=== PATIENT | female | born 1945 | race American Indian/Alaskan Native ===

== ENCOUNTER 2021-07-15 18:03 | Emergency (ER) | payer MEDICARE ==
--- NOTE | 2021-07-15 20:50 | Event Note ---
Date: 07/16/21 The patient was evaluated in the emergency department for symptoms described in the history of present illness. He/she was evaluated in the context of the global COVID-19 pandemic, which necessitated consideration that the patient might be at risk for infection with the virus that causes COVID-19. Institutional protocols and algorithms that pertain to the evaluation of patients at risk for COVID-19 are in a state of rapid change based on information released by regulatory bodies including the CDC and federal and state organizations. These policies and algorithms were followed during the patient's care in the emergency department. Please note that these policies, procedures and recommendations changed on a rapid basis. Medical screening examination: 75-year-old female, resides in a half-way, sent to the emergency room for evaluation after fall. EMS tells me that the patient has chronic respiratory failure, and is chronically on home oxygen. The patient is awake, follows commands, moves 4 extremities, but is confused and demented at baseline as per EMS. CT scan brain, cervical spine, x-ray chest, pelvis, appropriate laboratory studies ordered. Vital Signs 07/15/21 23:45 Temperature 98.9 F Pulse Rate 81 Respiratory 22 Rate Blood Pressure 144/78 [Left] O2 Sat by Pulse 100 Oximetry Lab Results 07/15/21 07/15/21 07/15/21 Range/Units 21:08 21:08 21:08 WBC 11.4 H (4.5-11.0) K/mm3 RBC 3.90 (3.65-5.03) M/mm3 Hgb 10.5 (10.1-14.3) gm/dl Hct 32.9 (30.3-42.9) % MCV 84 (79-97) fl MCH 27 L (28-32) pg MCHC 32 (30-34) % RDW 19.0 H (13.2-15.2) % Plt Count 344 (140-440) K/mm3 Lymph % (Auto) 8.7 L (13.4-35.0) % [place] % (Auto) 6.5 (0.0-7.3) % Eos % (Auto) 2.4 (0.0-4.3) % Baso % (Auto) 0.3 (0.0-1.8) % Lymph # (Auto) 1.0 L (1.2-5.4) K/mm3 [place] # (Auto) 0.7 (0.0-0.8) K/mm3 Eos # (Auto) 0.3 (0.0-0.4) K/mm3 Baso # (Auto) 0.0 (0.0-0.1) K/mm3 Seg Neutrophils % 82.1 H (40.0-70.0) % Seg Neutrophils # 9.4 H (1.8-7.7) K/mm3 Sodium 135 L (137-145) mmol/L Potassium 4.3 (3.6-5.0) mmol/L Chloride 101.6 (98-107) mmol/L Carbon Dioxide 23 (22-30) mmol/L Anion Gap 15 mmol/L BUN 14 (7-17) mg/dL Creatinine 0.3 L (0.6-1.2) mg/dL Estimated GFR > 60 ml/min BUN/Creatinine Ratio 47 % Glucose 93 (65-100) mg/dL Lactic Acid 1.30 (0.7-2.0) mmol/L Calcium 9.6 (8.4-10.2) mg/dL Magnesium 2.20 (1.7-2.3) mg/dL Total Bilirubin 0.90 (0.1-1.2) mg/dL AST 302 H (5-40) units/L ALT 36 (7-56) units/L Alkaline Phosphatase 460 H (35-129) units/L Total Creatine Kinase 19 L (30-135) units/L Troponin T < 0.010 (0.00-0.029) ng/mL Total Protein 7.6 (6.3-8.2) g/dL Albumin 3.1 L (3.9-5) g/dL Albumin/Globulin Ratio 0.7 % CT head/brain wo con INDICATION / CLINICAL INFORMATION: 75 years Female; Fall, closed head injury, alteration in mental sta. TECHNIQUE: Routine CT head without contrast. All CT scans at this location are performed using CT dose reduction for ALARA by means of automated exposure control. COMPARISON: None. FINDINGS: BRAIN / INTRACRANIAL CONTENTS: There is extensive right frontotemporal scalp hematoma. The motion and positioning degrade the image quality. However, there is no clear CT evidence of acute intracranial hemorrhage or significant mass effect. There appears be mild to moderate cerebral white matter disease most consistent with microvascular angiopathy. Findings include the internal capsules at. This mild cerebral atrophy. The ventricular system is correspondingly appropriate in size and configuration. ORBITS: No significant abnormality of visualized orbits. SINUSES / MASTOIDS: No significant abnormality in the visualized paranasal sinuses or mastoid air cells. CRANIOCERVICAL JUNCTION: No significant abnormality. ADDITIONAL FINDINGS: None. IMPRESSION: 1. There is extensive right frontotemporal scalp hematoma. However, there is no cl ear CT evidence of acute intracranial hemorrhage. 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 Signer Name: Salvatore Kilgore MD Signed: 07/15/2021 9:01 PM Workstation Name: [id number] CT cervical spine wo con INDICATION / CLINICAL INFORMATION: 75 years Female; Fall, closed head injury, alteration in mental sta. TECHNIQUE: Axial CT images of the cervical spine were obtained. Sagittal and coronal reformatted images were produced. All CT scans at this location are performed using CT dose reduction for ALARA by means of automated exposure control. COMPARISON: None available. FINDINGS: POST-SURGICAL CHANGES: None. ALIGNMENT: There is mild curvature the cervical spine, convex toward the left at. There is no significant spondylolisthesis at. VERTEBRAE: The motion and positioning degrade the image quality at. However, there is no gross CT evidence of acute fracture involving the cervical spine. There is moderate disc space narrowing with mild endplate changes from C3-4 to C6-7 at. Appears be incidental enostosis within the left at pedicle of T4. INTRAVERTEBRAL DISCS: There is mild right foraminal narrowing at C2-3 at. There is marked right foraminal narrowing at C3-4. Mild narrowing is seen on the left. There is marked right and moderate to marked left foraminal narrowing at C4-5. There is also marked right foraminal narrowing at C5-6 at. The spondylosis at C6-7 appears to efface the ventral subarachnoid space. There is marked right and milder left foraminal narrowing. PARASPINAL SOFT TISSUES: No prevertebral soft tissue fluid collections are identified. There is heterogeneous appearance of the visualized of thyroid gland with areas of decreased attenuation which extended posteriorly on the right. The findings are nonspecific. ADDITIONAL FINDINGS: None. IMPRESSION: 1. There is no clear CT evidence of acute fracture involving the cervical spine. 2. There are multilevel degenerative the changes as detailed above. Signer Name: Salvatore Kilgore MD Signed: 07/15/2021 9:08 PM CHEST 1 VIEW INDICATION / CLINICAL INFORMATION: Fall, weakness, suspect sepsis. COMPARISON: None available. FINDINGS: SUPPORT DEVICES: None. HEART / MEDIAS TINUM: No significant abnormality. LUNGS / PLEURA: There is significant interstitial pulmonary opacities throughout both lungs. No large areas consolidation or pleural effusion noted. Unfortunately, there are no prior chest radiographs for comparison. No pleural effusion. No pneumothorax. ADDITIONAL FINDINGS: Prominent degenerative changes noted within the left shoulder. IMPRESSION: 1. Prominent bilateral interstitial pulmonary opacities. Although I do not have prior films to confirm chronicity or acuteness, I am concerned the patient may have bilateral multifocal pneumonia. Correlation with Covid status is recommended. Signer Name: Fátima Avalos MD Signed: 07/15/2021 9:08 PM Workstation Name: [id number] AP PELVIS, SINGLE VIEW INDICATION / CLINICAL INFORMATION: Fall hip pain. CO MPARISON: None available. FINDINGS: Single view the pelvis does not demonstrate visible fracture. Both hips are grossly intact and without dislocation. IMPRESSION: No obvious fracture or dislocation of the pelvis. Signer Name: Fátima Avalos MD Signed: 07/15/2021 9:06 PM Workstation Name: [id number]
[2021-07-15 21:44] LABS: Basophils % (Auto) 0.3 % (0.0-1.8); Eosinophils # (Auto) 0.3 K/mm3 (0.0-0.4); Eosinophils % (Auto) 2.4 % (0.0-4.3); Hematocrit 32.9 % (30.3-42.9); Hemoglobin 10.5 gm/dl (10.1-14.3); Lymphocytes % (Auto) 8.7 % (13.4-35.0); Mean Corpuscular HGB Conc 32 % (30-34); Mean Corpuscular Volume 84 fl (79-97); Monocytes # (Auto) 0.7 K/mm3 (0.0-0.8); Monocytes % (Auto) 6.5 % (0.0-7.3); Platelet Count 344 K/mm3 (140-440)
[2021-07-15 21:56] LABS: Alanine Aminotransferase 36 units/L (7-56); Albumin 3.1 g/dL (3.9-5); Blood Urea Nitrogen 14 mg/dL (7-17); Calcium 9.6 mg/dL (8.4-10.2); Hemolysis Index 3
[2021-07-15 22:01] LABS: BUN/Creatinine Ratio 47
--- NOTE | 2021-07-15 22:05 | Cat Scan Report ---
CT head/brain wo con INDICATION / CLINICAL INFORMATION: 75 years Female; Fall, closed head injury, alteration in mental sta. TECHNIQUE: Routine CT head without contrast. All CT scans at this location are performed using CT dos e reduction for ALARA by means of automated exposure control. COMPARISON: None. FINDINGS: BRAIN / INTRACRANIAL CONTENTS: There is extensive right frontotemporal scalp hematoma. The motion and positioning degrade the image quality. However, there is no clear CT evidence of acute intracranial hemorrhage or significant mass effect. There appears be mild to moderate cerebral white matter disease most consistent with microvascular an giopathy. Findings include the internal capsules at. This mild cerebral atrophy. The ventricular syst em is correspondingly appropriate in size and configuration. ORBITS: No significant abnormality of visualized orbits. SINUSES / MASTOIDS: No significant abnormality in the visualized paranasal sinuses or mastoid air booker ls. CRANIOCERVICAL JUNCTION: No significant abnormality. ADDITIONAL FINDINGS: None. IMPRESSION: 1. There is extensive right frontotemporal scalp hematoma. However, there is no clear CT evidence of acute intracranial hemorrhage. 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 Signer Name: Salvatore Kilgore MD Signed: 07/15/2021 10:01 PM Workstation Name: [id number]
--- NOTE | 2021-07-15 22:11 | XRay Report ---
AP PELVIS, SINGLE VIEW INDICATION / CLINICAL INFORMATION: Fall hip pain. COMPARISON: None available. FINDINGS: Single view the pelvis does not demonstrate visible fracture. Both hips are grossly intact and withou t dislocation. IMPRESSION: No obvious fracture or dislocation of the pelvis. Signer Name: Fátima Avalos MD Signed: 07/15/2021 10:06 PM Workstation Name: [id number]
--- NOTE | 2021-07-15 22:13 | XRay Report ---
CHEST 1 VIEW INDICATION / CLINICAL INFORMATION: Fall, weakness, suspect sepsis. COMPARISON: None available. FINDINGS: SUPPORT DEVICES: None. HEART / MEDIASTINUM: No significant abnormality. LUNGS / PLEURA: There is significant interstitial pulmonary opacities throughout both lungs. No large areas consolidation or pleural effusion noted. Unfortunately, there are no prior chest radiographs f or comparison. No pleural effusion. No pneumothorax. ADDITIONAL FINDINGS: Prominent degenerative changes noted within the left shoulder. IMPRESSION: 1. Prominent bilateral interstitial pulmonary opacities. Although I do not have prior films to confir m chronicity or acuteness, I am concerned the patient may have bilateral multifocal pneumonia. Correl ation with Covid status is recommended. Signer Name: Fátima Avalos MD Signed: 07/15/2021 10:08 PM Workstation Name: [id number]
--- NOTE | 2021-07-15 22:13 | Cat Scan Report ---
CT cervical spine wo con INDICATION / CLINICAL INFORMATION: 75 years Female; Fall, closed head injury, alteration in mental sta. TECHNIQUE: Axial CT images of the cervical spine were obtained. Sagittal and coronal reformatted images were pr oduced. All CT scans at this location are performed using CT dose reduction for ALARA by means of aut omated exposure control. COMPARISON: None available. FINDINGS: POST-SURGICAL CHANGES: None. ALIGNMENT: There is mild curvature the cervical spine, convex toward the left at. There is no signifi cant spondylolisthesis at. VERTEBRAE: The motion and positioning degrade the image quality at. However, there is no gross CT janny dence of acute fracture involving the cervical spine. There is moderate disc space narrowing with mil d endplate changes from C3-4 to C6-7 at. Appears be incidental enostosis within the left at pedicle o f T4. INTRAVERTEBRAL DISCS: There is mild right foraminal narrowing at C2-3 at. There is marked right lan inal narrowing at C3-4. Mild narrowing is seen on the left. There is marked right and moderate to marked left foraminal narrowing at C4-5. There is also marked r ight foraminal narrowing at C5-6 at. The spondylosis at C6-7 appears to efface the ventral subarachnoid space. There is marked right and m ilder left foraminal narrowing. PARASPINAL SOFT TISSUES: No prevertebral soft tissue fluid collections are identified. There is heter ogeneous appearance of the visualized of thyroid gland with areas of decreased attenuation which exte nded posteriorly on the right. The findings are nonspecific. ADDITIONAL FINDINGS: None. IMPRESSION: 1. There is no clear CT evidence of acute fracture involving the cervical spine. 2. There are multilevel degenerative the changes as detailed above. Signer Name: Salvatore Kilgore MD Signed: 07/15/2021 10:08 PM Workstation Name: [id number]
--- NOTE | 2021-07-16 00:07 | Emergency Department Report ---
ED Fall HPI - General Chief Complaint: Fall Stated Complaint: FALL Time Seen by Provider: 07/15/21 23:44 Source: EMS Mode of arrival: Stretcher - History of Present Illness Initial Comments: Patient is a 75-year-old F Citizen Of [place] female with a past medical history of Parkinson's Parkinson's dementia pulmonary embolus as a complication COVID-19 who is presenting status post fall. Patient had a several day stay in the hospital admitted last month for hypoxia. Patient had a pulmonary embolus at that time. She was weaned down to room air was doing much improved proved at the time of discharge. Patient was positioned repositioning herself in bed today and suffered a fall with a head injury. Patient is not a good historian at this time and states that she hurts but is unable to give a location of her pain. There is a large hematoma on her forehead. ED Review of Systems ROS: Stated complaint: FALL Other details as noted in HPI Comment: All other systems reviewed and negative ED Past Medical Hx - Past Medical History Previous Medical History?: Yes Hx Hypertension: Yes Additional medical history: hypothyroidism, dementia - Surgical History Past Surgical History?: No ED Physical Exam - General Limitations: Altered Mental Status, Physical Limitation General appearance: alert, in no apparent distress - Head Head exam: Present: atraumatic, normocephalic, other (Right-sided forehead hematoma versus lipoma) - Eye Eye exam: Present: normal appearance, PERRL, EOMI - ENT ENT exam: Present: mucous membranes moist - Neck Neck exam: Present: normal inspection - Respiratory Respiratory exam: Present: normal lung sounds bilaterally. Absent: respiratory distress, wheezes, rales, rhonchi - Cardiovascular Cardiovascular Exam: Present: regular rate, normal rhythm, normal heart sounds. Absent: systolic murmur, diastolic murmur, rubs, gallop - GI/Abdominal GI/Abdominal exam: Present: soft, normal bowel sounds. Absent: distended, tenderness, guarding, rebound - Extremities Exam Extremities exam: Present: normal inspection - Back Exam Back exam: Present: normal inspection - Neurological Exam Neurological exam: Present: alert, altered - Psychiatric Psychiatric exam: Present: normal affect, normal mood - Skin Skin exam: Present: warm, dry, intact, normal color. Absent: rash ED Course Vital Signs 07/15/21 23:45 Temperature 98.9 F Pulse Rate 81 Respiratory 22 Rate Blood Pressure 144/78 [Left] O2 Sat by Pulse 100 Oximetry ED Medical Decision Making - Lab Data Result diagrams: 07/15/21 21:08 07/15/21 21:08 - Radiology Data CT head/brain wo con INDICATION / CLINICAL INFORMATION: 75 years Female; Fall, closed head injury, alteration in mental sta. TECHNIQUE: Routine CT head without contrast. All CT scans at this location are performed using CT dose reduction for ALARA by means of automated exposure control. COMPARISON: None. FINDINGS: BRAIN / INTRACRANIAL CONTENTS: There is extensive right frontotemporal scalp hematoma. The motion and positioning degrade the image quality. However, there is no clear CT evidence of acute intracranial hemorrhage or significant mass effect. There appears be mild to moderate cerebral white matter disease most consistent with microvascular angiopathy. Findings include the internal capsules at. This mild cerebral atrophy. The ventricular system is correspondingly appropriate in size and configuration. ORBITS: No significant abnormality of visualized orbits. SINUSES / MASTOIDS: No significant abnormality in the visualized paranasal sinuses or mastoid air cells. CRANIOCERVICAL JUNCTION: No significant abnormality. ADDITIONAL FINDINGS: None. IMPRESSION: 1. There is extensive right frontotemporal scalp hematoma. However, there is no clear CT evidence of acute intracranial hemorrhage. 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 Signer Name: Salvatore Kilgore MD Signed: 07/15/2021 9:01 PM Workstation Name: [id number] CT cervical spine wo con INDICATION / CLINICAL INFORMATION: 75 years Female; Fall, closed head injury, alteration in mental sta. TECHNIQUE: Axial CT images of the cervical spine were obtained. Sagittal and coronal reformatted images were produced. All CT scans at this location are performed using CT dose reduction for ALARA by means of automated exposure control. COMPARISON: None available. FINDINGS: POST-SURGICAL CHANGES: None. ALIGNMENT: There is mild curvature the cervical spine, convex toward the left at. There is no significant spondylolisthesis at. VERTEBRAE: The motion and positioning degrade the image quality at. However, there is no gross CT evidence of acute fracture involving the cervical spine. There is moderate disc space narrowing with mild endplate changes from C3-4 to C6-7 at. Appears be incidental enostosis within the left at pedicle of T4. INTRAVERTEBRAL DISCS: There is mild right foraminal narrowing at C2-3 at. There is marked right foraminal narrowing at C3-4. Mild narrowing is seen on the left. There is marked right and moderate to marked left foraminal narrowing at C4-5. There is also marked right foraminal narrowing at C5-6 at. The spondylosis at C6-7 appears to efface the ventral subarachnoid space. There is marked right and milder left foraminal narrowing. PARASPINAL SOFT TISSUES: No prevertebral soft tissue fluid collections are identified. There is heterogeneous appearance of the visualized of thyroid gland with areas of decreased attenuation which extended posteriorly on the right. The findings are nonspecific. ADDITIONAL FINDINGS: None. IMPRESSION: 1. There is no clear CT evidence of acute fracture involving the cervical spine. 2. There are multilevel degenerative the changes as detailed above. Signer Name: Salvatore Kilgore MD CHEST 1 VIEW INDICATION / CLINICAL INFORMATION: Fall, weakness, suspect sepsis. COMPARISON: None available. FINDINGS: SUPPORT DEVICES: None. HEART / MEDIASTINUM: No significant abnormality. LUNGS / PLEURA: There is significant interstitial pulmonary opacities throughout both lungs. No large areas consolidation or pleural effusion noted. Unfortunately, there are no prior chest radiographs for comparison. No pleural effusion. No pneumothorax. ADDITIONAL FINDINGS: Prominent degenerative changes noted within the left shoulder. IMPRESSION: 1. Prominent bilateral interstitial pulmonary opacities. Although I do not have prior films to confirm chronicity or acuteness, I am concerned the patient may have bilateral multifocal pneumonia. Correlation with Covid status is recommended. Signer Name: Fátima Avalos MD Signed: 07/15/2021 9:08 PM Workstation Name: [id number] [email or web address] [email or web address], SINGLE VIEW INDICATION / CLINICAL INFORMATION: Fall hip pain. COMPARISON: None available. FINDINGS: Single view the pelvis does not demonstrate visible fracture. Both hips are grossly intact and without dislocation. IMPRESSION: No obvious fracture or dislocation of the pelvis. Signer Name: Fátima Avalos MD Signed: 07/15/2021 9:06 PM Workstation Name: [id number] - Medical Decision Making CT head and neck and x-ray of the pelvis showed no acute abnormality.11 chest x- ray was performed. Initially that was added because of the recent diagnosis of COVID-19. Bilateral opacities were found. These are likely secondary to her recent COVID-19 pneumonia/pneumonitis/pulmonary embolus with possible infarct. Patient is on 3 L of oxygen at the nursing facility. She is on oxygen at this time and is a Patel percent on 3 L. Patient no respiratory distress. Patient stable for discharge back to nursing facility. Critical care attestation.: If time is entered above; I have spent that time in minutes in the direct care of this critically ill patient, excluding procedure time. ED Disposition Clinical Impression: Fall, Closed head injury, Traumatic hematoma of forehead Disposition: 01 HOME / SELF CARE / HOMELESS Is pt being admited?: No Does the pt Need Aspirin: No Condition: Stable Instructions: Head Injury, Adult, [id number], Contusion, [id number] Time of Disposition: 00:09
[2021-07-16 01:57] LABS: Bacteria,Urine 2+ /HPF (Negative); Bilirubin,Urine NEG (Negative); Blood,Urine NEG (Negative); Color,Urine Yellow (Yellow); Mucus,Urine FEW /HPF; Protein,Urine <15 mg/dL mg/dL (Negative)
[2021-07-16 17:40] VITALS: BP 130/77
--- NOTE | 2021-07-18 09:43 | Electrocardiograph Report ---
[facility] Test Date: 2021-07-16 Test Time: 00:03:36 Pat Name: ISAAC FELIX Department: Room: Gender: F Driver Trainee: RIVERA : 1945 Requested By: MEGGAN ALEX Order Number: [id number] Reading MD: Alvaro Lemus Measurements Intervals [place] Rate: 77 P: 14 OR: 157 QRS: -8 QRSD: 79 T: 29 QT: 375 QTc: 425 Interpretive Statements Sinus rhythm Left ventricular hypertrophy No previous ECG available for comparison Electronically Signed On 07-18-2021 9:42:43 EDT by Alvaro Lemus
== END 2021-07-16 17:40 | disposition home or self-care (01) ==
LOC: ED 18:03
DX: S09.90XA Unspecified injury of head, initial encounter (principal); S00.93XA Contusion of unspecified part of head, initial encounter; I10 Essential (primary) hypertension; W19.XXXA Unspecified fall, initial encounter; Y93.89 Activity, other specified; Y92.89 Other specified places as the place of occurrence of the external cause; Y99.8 Other external cause status
CPT/HCPCS: 36415; 70450; 71045; 72125; 72170; 80053; 81001; 82140; 82550; 83735; 84484; 85025; 87076; 87086; 87186; 93005; 99284